=== PATIENT | female | born 1975 | race Caucasian/White ===

== ENCOUNTER 2018-07-20 14:10 | Outpatient (CLI) | payer BC ==
--- NOTE | 2018-07-20 14:39 | RAD ---
CERVICAL SPINE FOUR VIEWS: CERVICAL SPINE FOUR VIEWS: History: Cervical radiculopathy. FINDINGS: Moderate degenerative changes are noted. The cervical vertebrae maintain posterior height. There is m ild anterior wedging of C4, C5, and C6. Anterior osteophytes are prominent from C3 through C6. Records Management Clerk ior spondylosis is prominent at C4-5 and C5-6 with slight anterolisthesis at C4-5. Facet hypertrophy is seen. IMPRESSION: There are moderate degenerative changes of the mid cervical spine as described. POS: C
== END 2018-07-20 14:11 | disposition home or self-care (01) ==
LOC: BICRAD 14:10
PROVIDERS: ATTEND Family Medicine
DX: M47.22 Other spondylosis with radiculopathy, cervical region (principal)
CPT/HCPCS: 72040